=== PATIENT | female | born 2000 | race Caucasian/White ===

== ENCOUNTER 2020-06-18 15:38 | Outpatient (REF) | payer OTHER, MEDICAID, SELFPAY ==
[2020-06-18 18:20] LABS: Hematocrit 39.7 % (37-47); Hemoglobin 13.3 g/dl (12.0-16.0); Mean Corpuscular HGB Conc 33.5 g/dl (31.0-35.0); Mean Corpuscular Hemoglobin 31.3 pg (27.0-33.0); Mean Corpuscular Volume 93.4 fL (80-98); Mean Platelet Volume 10.3 fL (9.4-12.3); Platelet Count 275 X10*3/uL (160-400); Red Blood Count 4.25 X10*6/uL (4.20-5.50); Red Cell Distribution Width 12.2 % (11.0-16.0); White Blood Count 7.3 X10*3/uL (4.8-10.8)
[2020-06-18 18:31] LABS: Alanine Aminotransferase 12 U/L (0-31); Albumin Level 4.4 g/dL (3.5-5.0); Alkaline Phosphatase 44 U/L (39-117); Anion Gap 13 (12-20); Aspartate Amino Transferase 17 U/L (5-31); Bilirubin Direct 0.3 mg/dL (0.0-0.5); Bilirubin Total 0.7 mg/dL (0.0-1.0); Blood Urea Nitrogen 16 mg/dL (9-16); Calcium 9.6 mg/dL (8.4-10.2); Carbon Dioxide 27 mmol/L (22-29); Chloride 104 mmol/L (96-108); Estimated Glomerular Filt Rate > 60; Glucose Random 84 mg/dL (60-115); Sodium 140 mmol/L (135-145); Total Protein 7.4 g/dL (6.5-8.0)
[2020-06-18 18:40] LABS: HCG Quantitative < 2 mIU/mL
[2020-06-18 18:51] LABS: Thyroid Stimulating Hormone 1.03 uIU/mL (0.32-4.0)
[2020-06-20 06:11] LABS: CT PCR NOT DETECTED (Not Detect.); NG PCR NOT DETECTED (Not Detect.)
== END 2020-06-18 15:39 | disposition home or self-care (01) ==
LOC: HO.LAB 15:38
PROVIDERS: PCP Internal Medicine; Visit Provider Obstetrics & Gynecology
DX: N92.1 Excessive and frequent menstruation with irregular cycle (principal); R10.2 Pelvic and perineal pain; D64.9 Anemia, unspecified; N63.20 Unspecified lump in the left breast, unspecified quadrant; N63.10 Unspecified lump in the right breast, unspecified quadrant
CPT/HCPCS: 36415; 80048; 80076; 84443; 84702; 85027; 87491; 87591; 88142

== ENCOUNTER 2020-06-27 13:42 | Outpatient (REF) | payer OTHER, MEDICAID, SELFPAY ==
--- NOTE | ~2020-06-27 | US_ITS ---
EXAMINATION: US PELVIS COMPLETE CLINICAL INFORMATION: Pelvic and perineal pain COMPARISON: None TECHNIQUE: Transabdominal and transvaginal imaging of the pelvis is performed. FINDINGS: On transabdominal ultrasound, the uterus is anteverted measuring 7.8 cm in length, 3.2 cm in AP and 5.0 cm in transverse dimension. The uterus is homogeneous in echotexture. The endometrial thickness is 0.86 cm. Cervix measures 2.03 cm. There is trace fluid in the cervical canal. The right ovary measures 4.06 x 2.58 x 2.74 cm and volume 15.03 mL. The left ovary measures 4.59 x 2.67 x 4.57 cm and volume 29.33 mL. There is an anechoic cyst measuring 2.1 x 1.6 x 1.9 cm. There is a complex anechoic cyst measuring 1.7 x 1.7 x 1.64 cm. There is small amount of free fluid adjacent to the left ovary. US/US pelvic complete IMPRESSION: 1. Complex cyst left ovary measuring 2.1 cm. 2. Small amount of free fluid adjacent to the left ovary. 3. The uterus is unremarkable. There is trace fluid in the cervical canal.
--- NOTE | ~2020-06-27 | US_ITS ---
EXAMINATION: US PELVIS COMPLETE CLINICAL INFORMATION: Pelvic and perineal pain COMPARISON: None TECHNIQUE: Transabdominal and transvaginal imaging of the pelvis is performed. FINDINGS: On transabdominal ultrasound, the uterus is anteverted measuring 7.8 cm in length, 3.2 cm in AP and 5.0 cm in transverse dimension. The uterus is homogeneous in echotexture. The endometrial thickness is 0.86 cm. Cervix measures 2.03 cm. There is trace fluid in the cervical canal. The right ovary measures 4.06 x 2.58 x 2.74 cm and volume 15.03 mL. The left ovary measures 4.59 x 2.67 x 4.57 cm and volume 29.33 mL. There is an anechoic cyst measuring 2.1 x 1.6 x 1.9 cm. There is a complex anechoic cyst measuring 1.7 x 1.7 x 1.64 cm. There is small amount of free fluid adjacent to the left ovary. US/US transvaginal IMPRESSION: 1. Complex cyst left ovary measuring 2.1 cm. 2. Small amount of free fluid adjacent to the left ovary. 3. The uterus is unremarkable. There is trace fluid in the cervical canal.
== END 2020-06-27 13:43 | disposition home or self-care (01) ==
LOC: HO.US 13:42
PROVIDERS: PCP Internal Medicine; Visit Provider Obstetrics & Gynecology
DX: R10.2 Pelvic and perineal pain (principal); N92.1 Excessive and frequent menstruation with irregular cycle
CPT/HCPCS: 76830; 76856

== ENCOUNTER → 2020-07-04 11:15 | Outpatient (BNVA) | payer OTHER, MEDICAID, SELFPAY | PROVIDERS: PCP Internal Medicine; Visit Provider Obstetrics & Gynecology ==

== ENCOUNTER → 2020-07-12 09:21 | Outpatient (BNVA) | payer OTHER, MEDICAID, SELFPAY | PROVIDERS: PCP Internal Medicine; Visit Provider Surgery ==

== ENCOUNTER 2020-07-15 10:24 | Outpatient (REF) | payer OTHER, MEDICAID, SELFPAY ==
--- NOTE | ~2020-07-15 | US_ITS ---
EXAMINATION: US DIAGNOSTIC ULTRASOUND BREAST, LEFT CLINICAL INFORMATION: Bilateral lumps felt by patient. COMPARISON: Right breast ultrasound from 07/22/2016 through 02/25/2015 TECHNIQUE: Ultrasound of the breast is performed with real-time arroyo-scale imaging and color Doppler. FINDINGS: About the 12 o'clock position, 5 cm from nipple, there is a circumscribed 9 x 6 x 6 mm solid-appearing lesion without distal sound shadowing and with a small amount of distal sound enhancement. There is some internal vascularity present. No region of abnormal distal sound shadowing is seen. Patient has 2 similar lesions within the right breast, 1 of which had been previously biopsied at [facility] with pathology result of a fibroadenoma. Would recommend 6-month followup ultrasound at this time. Results are discussed with the patient at time of visit. US/US breast LT limited IMPRESSION: Left breast lesion 12 o'clock position, 5 cm from the nipple, likely representing fibroadenoma. Recommend 6-month followup ultrasound examination. ASSESSMENT: BI-RADS 3: Probably Benign. RECOMMENDATION: Diagnostic mammography in 6 months. This patient's information was entered into a reminder system with a target due date for their next mammogram.
--- NOTE | ~2020-07-15 | US_ITS ---
EXAMINATION: US DIAGNOSTIC ULTRASOUND BREAST, RIGHT CLINICAL INFORMATION: Right breast lumps. COMPARISON: Ultrasound examination from [facility] of 07/22/2016 and dating back to 02/25/2015. TECHNIQUE: Ultrasound of the breast is performed with real-time arroyo scale imaging and color Doppler. FINDINGS: At the 11 o'clock position 6 cm from nipple, there is again noted to be a well-circumscribed heterogeneous and hypoechoic lesion with internal vascularity. There is distal sound enhancement present. No suspicious distal sound shadowing. This is wider than it is tall. This corresponds to previously biopsied fibroadenoma. It has increased in size to approximately 2.8 x 2.5 x 1.2 cm in size compared to 1.8 x 1.8 x 0.8 cm in size on ultrasound study of November 14, 2015. There is also noted to be at the 4 o'clock position 9 cm from nipple a well-circumscribed hypoechoic lesion with increased distal through sound transmission without internal vascularity which is wider than it is tall measuring approximately 1.0 x 0.7 x 0.9 cm in size. This was not mentioned on previous studies. Recommend 6-month follow up study of the right breast to ensure stability. Results are discussed with the patient at time of visit. US/US breast RT limited IMPRESSION: Bilateral hypoechoic lesions one in each breast that was not noted previously and likely represent fibroadenomas for which 6-month follow up examination is recommended. Previously noted benign fibroadenoma within the right breast at the 11 o'clock position which has shown some increase in size since November 14, 2015. ASSESSMENT: BI-RADS 3: Probably Benign. RECOMMENDATION: Diagnostic mammography in 6 months. This patient's information was entered into a reminder system with a target due date for their next mammogram.
== END 2020-07-15 10:25 | disposition home or self-care (01) ==
LOC: HO.MAMMO 10:24
PROVIDERS: Visit Provider Surgery
DX: D24.2 Benign neoplasm of left breast (principal); D24.1 Benign neoplasm of right breast
CPT/HCPCS: 76642

== ENCOUNTER 2020-08-15 10:39 | Outpatient (REF) | payer OTHER, MEDICAID, SELFPAY | END 2020-08-15 10:40 | disposition home or self-care (01) | LOC: HO.LAB 10:39 | PROVIDERS: PCP Internal Medicine; Visit Provider Obstetrics & Gynecology | DX: R87.615 Unsatisfactory cytologic smear of cervix (principal) | CPT/HCPCS: 88142 ==

== ENCOUNTER → 2020-08-27 09:28 | Outpatient (BNVA) | payer OTHER, MEDICAID, SELFPAY | PROVIDERS: PCP Internal Medicine; Referring Provider Internal Medicine; Visit Provider Surgery ==

== ENCOUNTER 2020-09-18 06:13 | Day surgery (SDC) | payer OTHER, MEDICAID, SELFPAY ==
[2020-09-10 10:43] VITALS: BMI 17.6
--- NOTE | 2020-09-17 08:36 | HO.ANESPROP2 ---
HPI - Anesthesia Eval Consult details Narrative: 20yo F for Right Excision of Breast Mass PMFSH Active Problems Active Problems: All Active Problems (Updated 08/15/20 @ 10:59 by Chao Szymanski MD) Menometrorrhagia (Acute) Pelvic pain (Acute) Bilateral breast lump (Acute) Complex ovarian cyst (Acute) Encounter for repeat Pap smear due to previous insufficient cervical cells (Acute) Fibroadenoma of breast (Acute) Anemia (Acute) Past Medical History Medical History (Updated 08/15/20 @ 10:59 by Chao Szymanski MD) Anemia Fibroadenoma of breast Family History Family History Father Heart problem Paternal Grandmother Heart problem Mother Allergy Chronic asthma Surgical History Surgical History (Updated 09/10/20 @ 10:42 by Felicitas Maguire) No history of previous surgery Social History Social History (Updated 09/10/20 @ 10:43 by Felicitas Maguire) Alcohol intake: never Patient Tobacco Use Status: Never used Tobacco Gender identity: female Meds Allergies Allergy/AdvReac Type Severity Reaction Status Date / Time No Known Allergies Allergy Verified 09/10/20 10:42 Exam Exam Date and Time: September 17, 2020 0836 Height,Weight and Vital Signs: Height 5 ft 3 in Weight 45.359 kg Pertinent Lab Results Pertinent Lab Results: Laboratory Tests 06/18/20 06/18/20 16:32 16:32 WBC 7.3 Hgb 13.3 Hct 39.7 Plt Count 275 Sodium 140 Potassium 4.0 Chloride 104 Carbon Dioxide 27 BUN 16 Creatinine 0.75 Narrative Narrative: US breast RT limited 06/2020 IMPRESSION: Bilateral hypoechoic lesions one in each breast that was not noted previously and likely represent fibroadenomas for which 6-month follow up examination is recommended. Previously noted benign fibroadenoma within the right breast at the 11 o'clock position which has shown some increase in size since November 14, 2015. Assessment and Plan Assessment Anesthesia Assessment: Chart Reviewed
[2020-09-18] VITALS (8 sets, daily range): BP systolic 95–114; BP diastolic 45–73; PULSE 51–74; RESP 14–19; TEMP 36.6–37; O2SAT 95–100
[2020-09-18 06:31] LABS: UPreg QC Valid YES; Urine Pregnancy NEGATIVE (NEGATIVE)
[2020-09-18] MEDS: Lactated Ringers 1,000 ML 100 ML IVCONT (06:35)
--- NOTE | 2020-09-18 08:14 | W.PM.OPN ---
Operative Note Operative Note Date of Service: 09/18/20 Narrative: Preoperative diagnosis: Right breast mass Postoperative diagnosis: Same Procedure: Excision of right breast mass Surgeon: Aman Lisa MD Public Health Educator: Kaci Jarvis PA-C Anesthesia: Mac Indications for procedure: 20-year-old female patient with known bilateral fibroadenoma presenting with enlarging fibroadenoma in the 11 o'clock position of the right breast. She presents today for excision of this enlarging fibroadenoma. Operative findings: Fibroadenoma in the upper outer quadrant right breast Specimen: Right breast mass Estimated blood loss: 2 mL Complications: None Procedure details: Patient was brought to the OR placed in a supine position. After administering light sedation the patient's right breast was prepped with ChloraPrep and draped in sterile fashion. A surgical time-out was called the consent confirmed. Patient received preoperative antibiotics and Venodyne boots were in place. Local anesthesia consisting 1% lidocaine with epinephrine was then infiltrated around the lesion. Curvilinear incision was made around the nipple in the 11 o'clock position. This carried out through subcutaneous tissue. Superior inferior skin flaps were then created. Dissection with Metzenbaum scissors was then used to dissect down to the palpable mass. This was then grasped with an Allis clamp and brought up through the incision. Electrocautery was then used to dissect around the lesion. Lesion was completely excised and sent to pathology for further examination. Wounds were irrigated with saline solution. Hemostasis was assured using electrocautery. Breast tissue was reapproximated using interrupted 3-0 Polysorb sutures in a radial fashion. Dermis was then reapproximated using interrupted 3-0 Polysorb sutures. Skin was then closed using a running subcuticular 4-0 Polysorb suture. Steri-Strips 2 x 2 gauze and Tegaderm were then applied. The patient tolerated the procedure well. Sponge, instrument, and needle counts were reported as correct. Patient was transferred to PACU in stable condition.
--- NOTE | 2020-09-18 08:19 | MHC.SHP ---
Pre-Procedural Eval Section A Date of Service: 09/18/20 The patient is an INPATIENT: Yes Changes since office visit: Yes Patient answered all questions; No Cold of Flu in the past 2 weeks, No New Medical Problems and No Changes in Medication The History & Physical has been completed within 30 days and I have reviewed it.: Yes Section B Chief Complaint: Unspecified lump in the right breast Allergies: Allergies Allergy/AdvReac Type Severity Reaction Status Date / Time No Known Allergies Allergy Verified 09/10/20 10:42 Plan Diagnosis/Plan: Unchanged I have reviewed the history and physical and performed a pertinent physical examination on my patient. No changes have occurred unless specified.
== END 2020-09-18 09:24 | disposition home or self-care (01) ==
PROVIDERS: Nurse Practitioner; PCP Internal Medicine; Visit Provider Surgery
PROC: (CPT 19120; principal; 2020-09-18 07:30)
DX: D24.1 Benign neoplasm of right breast (principal); D64.9 Anemia, unspecified
CPT/HCPCS: 19120; 81025; 88307; J0690; J1100; J2250; J2405; J3010

== ENCOUNTER → 2020-09-27 13:19 | Outpatient (BNVA) | payer OTHER, MEDICAID, SELFPAY | PROVIDERS: PCP Internal Medicine; Visit Provider Surgery ==

== ENCOUNTER 2021-04-24 11:24 | Outpatient (REF) | payer OTHER, MEDICAID, SELFPAY ==
--- NOTE | ~2021-04-24 | US_ITS ---
EXAMINATION: US PELVIS COMPLETE US PELVIS TRANSVAGINAL CLINICAL INFORMATION: Follow-up ovarian cyst COMPARISON: Previous pelvic ultrasound June 2020 TECHNIQUE: Transabdominal and transvaginal pelvic ultrasound was performed. Transvaginal exam was performed for better visualization of the uterus and ovaries. FINDINGS: The uterus is anteverted and measures 7.2 x 3.8 x 4.8 cm in dimension. No focal uterine lesion is seen. Endometrial thickness is normal measuring 0.6 cm. The cervix is normal. The ovaries are upper normal in size. The right ovary measures 4.2 x 2.7 x 2.8 cm, volume 17 mL. The left ovary measures 4.8 x 2.2 x 2.8 cm, volume 15 mL. The previously identified slightly complex left ovarian cyst seen June 2020 is no longer seen. There is a polycystic appearance of the ovaries. There is a small amount of fluid in the pelvis. US/US transvaginal IMPRESSION: Resolved complex left ovarian cyst from June 2020 exam. The ovaries are upper normal in size with polycystic appearance.
--- NOTE | ~2021-04-24 | US_ITS ---
EXAMINATION: US PELVIS COMPLETE US PELVIS TRANSVAGINAL CLINICAL INFORMATION: Follow-up ovarian cyst COMPARISON: Previous pelvic ultrasound June 2020 TECHNIQUE: Transabdominal and transvaginal pelvic ultrasound was performed. Transvaginal exam was performed for better visualization of the uterus and ovaries. FINDINGS: The uterus is anteverted and measures 7.2 x 3.8 x 4.8 cm in dimension. No focal uterine lesion is seen. Endometrial thickness is normal measuring 0.6 cm. The cervix is normal. The ovaries are upper normal in size. The right ovary measures 4.2 x 2.7 x 2.8 cm, volume 17 mL. The left ovary measures 4.8 x 2.2 x 2.8 cm, volume 15 mL. The previously identified slightly complex left ovarian cyst seen June 2020 is no longer seen. There is a polycystic appearance of the ovaries. There is a small amount of fluid in the pelvis. US/US pelvic complete IMPRESSION: Resolved complex left ovarian cyst from June 2020 exam. The ovaries are upper normal in size with polycystic appearance.
== END 2021-04-24 11:25 | disposition home or self-care (01) ==
LOC: HO.US 11:24
PROVIDERS: Visit Provider Obstetrics & Gynecology
DX: N83.299 Other ovarian cyst, unspecified side (principal)
CPT/HCPCS: 76830; 76856

== ENCOUNTER → 2021-04-30 13:46 | Outpatient (BNVA) | payer OTHER, MEDICAID, SELFPAY | PROVIDERS: Visit Provider Obstetrics & Gynecology ==

== ENCOUNTER 2021-06-27 08:20 | Emergency (ER) | payer OTHER, MEDICAID, SELFPAY ==
--- NOTE | ~2021-06-27 | CT_ITS ---
EXAMINATION: CT ABDOMEN AND PELVIS WITHOUT CONTRAST CLINICAL INFORMATION: Left flank pain. COMPARISON: None TECHNIQUE: Multidetector volumetric imaging was performed from the superior aspect of the liver through the pubic symphysis. Sagittal and coronal reformatted images were obtained on the technologist's workstation. This CT examination was performed using dose optimization techniques as appropriate, variously including the following: *Automated exposure control *Adjustment of mA and/or kV according to patient size (this includes techniques or standardized protocols for targeted exams where dose is matched to indication/reason for exam; i.e. extremities or head) *Use of iterative reconstruction technique DLP: 270 mGy-cm FINDINGS: LUNG BASES: The visualized lung bases are unremarkable. LIVER, GALLBLADDER, AND BILIARY TREE: The liver is normal in size, shape, and attenuation. No focal hepatic lesion or biliary ductal dilatation is present. The gallbladder is unremarkable with no evidence of radiopaque gallstones, gallbladder wall thickening, or obvious pericholecystic inflammatory changes. PANCREAS: Suboptimally evaluated on this patient with minimal body fat as well as lack of intravenous contrast, grossly unremarkable. SPLEEN: Unremarkable. ADRENAL GLANDS: Unremarkable. KIDNEYS AND URETERS: Subtle hyper densities are noted along the distribution of the renal pyramids/medulla within the right kidney (best visualized on the coronal images -42, 45:9). (Extensive subtle hypodensities are also noted within the left kidney. The findings are consistent with medullary nephrocalcinosis. Specific note is made of a superimposed tiny punctate 2 mm hyperdensity within the middle calyx of the left kidney (39:9), may represent tiny nonobstructing calculus. Mild asymmetric fullness of the left renal pelvicalyceal system is noted. Mild dilatation of the proximal to mid part of the left ureter is noted. There is a 2 to 3 mm radiodensity seen within the left mid to lower hemipelvis (511:6), may represent phlebolith versus distal left ureteric calculus. BLADDER: Suboptimally distended, shows apparent diffuse mural wall thickening, likely changes secondary to physiologic suboptimal distention. Differential include superimposed infection as well. GASTROINTESTINAL TRACT: Significant fecal residual is noted throughout the entire large bowel. The small bowel loops are decompressed. The stomach is decompressed. Appendicoliths are noted without any CT features of superimposed acute appendicitis. ABDOMINAL WALL: No significant hernia is appreciated. LYMPH NODES: Normal. VASCULAR: Suboptimally visualized due to lack of body fat, grossly unremarkable. PELVIC VISCERA: No evidence of any free fluid and/or free air. Phleboliths are seen within the lower pelvis bilaterally (right greater than left). OSSEOUS STRUCTURES: Unremarkable. CT/CT abdomen pelvis wo con IMPRESSION: 1. Technically limited study due to lack of body fat and lack of oral and intravenous contrast. 2. Subtle hyper densities are noted within both kidneys (right greater than left) along the pyramids, consistent with medullary nephrocalcinosis. Superimposed tiny punctate 2 mm hyperdensity within the medial calyx of the left kidney may represent tiny nonobstructing calculus. Mild asymmetric fullness of the left renal pelvicalyceal system and mild dilatation of the proximal to mid part of the left ureter are also noted. There is a 2 to 3 mm radiodensity seen within the left mid to lower hemipelvis, may represent phlebolith versus distal left ureteric calculus. 3. Appendicolith without any CT features of superimposed acute appendicitis. Fleischner guidelines were followed.
[2021-06-27 08:23] VITALS: BP 107/72; PULSE 76; RESP 17; TEMP 36.6; O2SAT 100; BMI 17.6
[2021-06-27 08:34] LABS: MANUAL DIFF FLAG NO
[2021-06-27 08:37] LABS: Basophils Percent Auto 0.4 % (0-2); Eosinophils Percent Auto 0.1 % (0-4); Hematocrit 36.1 % (37.0-47.0); Hemoglobin 12.5 g/dl (12.0-16.0); Imm Gran Abs Auto 0.02 X10*3/uL (0.00-0.03); Imm Gran Pct Auto 0.2 % (0.0-0.4); Lymphocytes Absolute Auto 0.9 X10*3/uL (1.2-4.9); Mean Corpuscular HGB Conc 34.6 g/dl (31.0-35.0); Mean Corpuscular Hemoglobin 31.3 pg (27.0-33.0); Mean Corpuscular Volume 90.5 fL (80.0-98.0); Monocytes Absolute Auto 0.3 X10*3/uL (0.1-1.2); Monocytes Percent Auto 2.9 % (2-11); Neutrophils Percent Auto 86.4 % (45-73); Platelet Count 211 X10*3/uL (160-400); Red Blood Count 3.99 X10*6/uL (4.20-5.50); Red Cell Distribution Width 11.9 % (11.0-16.0); White Blood Count 9.2 X10*3/uL (4.8-10.8)
--- NOTE | 2021-06-27 08:51 | ED.ABDPAIN ---
HPI - Abdominal Pain General Chief Complaint: Abdominal Pain Stated Complaint: Abd pain Time Seen by Provider: 06/27/21 08:50 History of Present Illness HPI narrative: Patient is a 21 year old female presented today with abdominal pain mainly over the left flank left lower quadrant very sudden onset started approximately 05:00. No cough no congestion or upper respiratory symptoms no diaphoresis. Pain is very sharp. Associated with some mild nausea. No vomiting. No change in bowel movement. No vaginal discharge. Patient home. Does not think she is . Her menstruation has been normal. Has no abdominal surgery the past Related Data Previous Rx's Medication Instructions Recorded ibuprofen 400 mg tablet 400 mg PO Q6H PRN #20 tab 06/27/21 ondansetron 4 mg disintegrating 4 mg PO TID PRN 5 Days #10 tab 06/27/21 tablet oxycodone 5 mg tablet 5 mg PO Q8H PRN #7 tab 06/27/21 tamsulosin 0.4 mg capsule (Flomax) 0.4 mg PO DAILY #7 cap 06/27/21 Allergies Allergy/AdvReac Type Severity Reaction Status Date / Time No Known Allergies Allergy Verified 03/25/21 10:15 Review of Systems Review of Systems No coughing or congestion no upper respiratory symptoms No diaphoresis All system reviewed otherwise negative Yes all other systems are reviewed and are negative PMFSH Past Medical History Medical History Anemia Fibroadenoma of breast Surgical History History of cystostomy Family History Family History Father Heart problem Paternal Grandmother Heart problem Mother Allergy Chronic asthma Social History Social History Housing: House Alcohol intake: never Patient Tobacco Use Status: Never used Tobacco e-Cigarette/Vaping Use: Currently Using Advance Directives: No Patient : No service: No Current occupational status: unemployed Gender identity: Female Cognitive needs: No Hearing needs: No Vision needs: No Physical Exam ED Vital Signs: Vital Signs - 24 hr 06/27/21 08:23 06/27/21 11:53 Temperature 97.9 F Pulse Rate 76 70 Respiratory Rate 17 16 Blood Pressure 107/72 99/62 Pulse Oximetry 100 96 BMI result Body Mass Index 17.6 Appearance: Alert. Oriented X3. No acute distress. Eyes: Pupils equal, round and reactive to light. ENT: Pharynx normal. Neck: Normal inspection. Neck supple. No lymph nodes noted. No crepitus CVS: Normal heart rate and rhythm. Pulses normal. Normal S1 and S2 Respiratory: No respiratory distress. Breath sounds normal. No Wheezing. No rales Abdomen: Soft and nontender. No rigidity. No distention. good BS x4 Skin: Skin warm and dry. Normal skin color. Normal skin turgor. Extremities: No lower extremity edema. Neurovascular intact to all extremities. No Lacerations. No Rash Neuro: Oriented X 3. No motor deficit. No sensory deficit. Moving all extermities. No slurred speech MDM - Abdominal Pain MDM Narrative Medical decision making narrative: CT of the abdomen showed possible kidney stones causing patient's pain on the left side. There is no appendicitis. No bowel obstructions abscess. Urine was negative for infection creatinine was normal pain is now controlled. Will give patient pain medication have patient follow-up with urology on an outpatient basis. She is in stable condition. Will discharge home. Medical Records Attestation: I reviewed the patient's medical records. Lab Data Attestation: I reviewed the patient's lab results. Result diagrams: 06/27/21 08:30 06/27/21 08:30 Labs: Lab Results 06/27/21 06/27/21 06/27/21 Range/Units 08:30 08:30 08:47 WBC 9.2 (4.8-10.8) X10*3/uL RBC 3.99 L (4.20-5.50) X10*6/uL Hgb 12.5 (12.0-16.0) g/dl Hct 36.1 L (37.0-47.0) % MCV 90.5 (80.0-98.0) fL MCH 31.3 (27.0-33.0) pg MCHC 34.6 (31.0-35.0) g/dl RDW 11.9 (11.0-16.0) % Plt Count 211 (160-400) X10*3/uL MPV 10.0 (9.4-12.3) fL Immature Gran % (Auto) 0.2 (0.0-0.4) % Neut % (Auto) 86.4 H (45-73) % Lymph % (Auto) 10.0 L (20-40) % Ferry % (Auto) 2.9 (2-11) % Eos % (Auto) 0.1 (0-4) % Baso % (Auto) 0.4 (0-2) % Lymph # (Auto) 0.9 L (1.2-4.9) X10*3/uL Ferry # (Auto) 0.3 (0.1-1.2) X10*3/uL Eos # (Auto) 0.0 (0.0-0.4) X10*3/uL Baso # (Auto) 0.0 (0.0-0.2) X10*3/uL Abs Immat Gran (auto) 0.02 (0.00-0.03) X10*3/uL Absolute Neuts (auto) 8.0 (2.0-8.3) x10*3/uL Absolute Nucleated RBC 0.000 (0.0-0.012) X10*3/uL Nucleated RBC % (auto) 0.0 (0.0-0.2) /100WBC Sodium 138 (135-145) mmol/L Potassium 3.7 (3.3-5.1) mmol/L Chloride 107 (96-108) mmol/L Carbon Dioxide 21 L (22-29) mmol/L Anion Gap 14 (12-20) BUN 18 H (9-16) mg/dL Creatinine 0.83 (0.5-1.4) mg/dL Estim Creat Clear Calc 75.5 Estimated GFR > 60 Random Glucose 102 (60-115) mg/dL Calcium 9.6 (8.4-10.2) mg/dL Total Bilirubin 0.5 (0.0-1.0) mg/dL AST 18 (5-31) U/L ALT 11 (0-31) U/L Alkaline Phosphatase 40 (39-117) U/L Total Protein 7.4 (6.5-8.0) g/dL Albumin 4.3 (3.5-5.0) g/dL Lipase 20 (8-78) U/L Urine Color YELLOW Urine Appearance HAZY Urine pH 7.0 (5.0-8.0) Ur Specific [place] 1.025 (1.005-1.025) Urine Protein TRACE (NEG-TRACE) MG/DL Urine Glucose (UA) NEG (NEG) MG/DL Urine Ketones 5 (NEG) MG/DL Urine Blood NEG (NEG) Urine Nitrite NEG (NEG) Ur Leukocyte Esterase NEG (NEG) Urine Test (NEGATIVE) 06/27/21 Range/Units 08:47 WBC (4.8-10.8) X10*3/uL RBC (4.20-5.50) X10*6/uL Hgb (12.0-16.0) g/dl Hct (37.0-47.0) % MCV (80.0-98.0) fL MCH (27.0-33.0) pg MCHC (31.0-35.0) g/dl RDW (11.0-16.0) % Plt Count (160-400) X10*3/uL MPV (9.4-12.3) fL Immature Gran % (Auto) (0.0-0.4) % Neut % (Auto) (45-73) % Lymph % (Auto) (20-40) % Ferry % (Auto) (2-11) % Eos % (Auto) (0-4) % Baso % (Auto) (0-2) % Lymph # (Auto) (1.2-4.9) X10*3/uL Ferry # (Auto) (0.1-1.2) X10*3/uL Eos # (Auto) (0.0-0.4) X10*3/uL Baso # (Auto) (0.0-0.2) X10*3/uL Abs Immat Gran (auto) (0.00-0.03) X10*3/uL Absolute Neuts (auto) (2.0-8.3) x10*3/uL Absolute Nucleated RBC (0.0-0.012) X10*3/uL Nucleated RBC % (auto) (0.0-0.2) /100WBC Sodium (135-145) mmol/L Potassium (3.3-5.1) mmol/L Chloride (96-108) mmol/L Carbon Dioxide (22-29) mmol/L Anion Gap (12-20) BUN (9-16) mg/dL Creatinine (0.5-1.4) mg/dL Estim Creat Clear Calc Estimated GFR Random Glucose (60-115) mg/dL Calcium (8.4-10.2) mg/dL Total Bilirubin (0.0-1.0) mg/dL AST (5-31) U/L ALT (0-31) U/L Alkaline Phosphatase (39-117) U/L Total Protein (6.5-8.0) g/dL Albumin (3.5-5.0) g/dL Lipase (8-78) U/L Urine Color Urine Appearance Urine pH (5.0-8.0) Ur Specific [place] (1.005-1.025) Urine Protein (NEG-TRACE) MG/DL Urine Glucose (UA) (NEG) MG/DL Urine Ketones (NEG) MG/DL Urine Blood (NEG) Urine Nitrite (NEG) Ur Leukocyte Esterase (NEG) Urine Test NEGATIVE (NEGATIVE) Discharge Plan Discharge Clinical Impression: Renal colic Patient Disposition: Home, Self-Care Instructions: Renal Colic (ED) Prescriptions: New tamsulosin [Flomax] 0.4 mg capsule 0.4 mg PO DAILY Qty: 7 0RF ibuprofen 400 mg tablet 400 mg PO Q6H PRN (Reason: pain) Qty: 20 0RF ondansetron 4 mg tablet,disintegrating 4 mg PO TID PRN (Reason: nausea and vomiting) 5 Days Qty: 10 0RF oxycodone 5 mg tablet 5 mg PO Q8H PRN (Reason: pain) Qty: 7 0RF Referrals: Shun Iglesias MD [Physician] -
[2021-06-27 08:53] LABS: Appearance Urine HAZY; Color Urine YELLOW; Glucose Urine UA NEG (NEG); Leukocyte Esterase Urine NEG (NEG); Nitrite Urine NEG (NEG); Specific Gravity - Urine 1.025 (1.005-1.025); Urine Blood NEG (NEG); Urine Ketones 5 MG/DL (NEG); Urine Protein TRACE MG/DL (NEG-TRACE)
[2021-06-27 08:55] LABS: UPreg QC Valid YES; Urine Pregnancy NEGATIVE (NEGATIVE)
[2021-06-27 09:02] LABS: Alanine Aminotransferase 11 U/L (0-31); Albumin Level 4.3 g/dL (3.5-5.0); Alkaline Phosphatase 40 U/L (39-117); Anion Gap 14 (12-20); Aspartate Amino Transferase 18 U/L (5-31); Bilirubin Total 0.5 mg/dL (0.0-1.0); Blood Urea Nitrogen 18 mg/dL (9-16); Calcium 9.6 mg/dL (8.4-10.2); Carbon Dioxide 21 mmol/L (22-29); Chloride 107 mmol/L (96-108); Creatinine Clr Calc Pharmacy 75.5; Estimated Glomerular Filt Rate > 60; Glucose Random 102 mg/dL (60-115); Lipase 20 U/L (8-78); Potassium 3.7 mmol/L (3.3-5.1); Sodium 138 mmol/L (135-145); Total Protein 7.4 g/dL (6.5-8.0)
--- NOTE | 2021-06-27 10:32 | PC.NURSE ---
IV placed in left AC #20 without problem. Resting quietly and in no apparent distress
[2021-06-27 11:53] VITALS: BP 99/62; PULSE 70; RESP 16; O2SAT 96
== END 2021-06-27 12:38 | disposition home or self-care (01) ==
PROVIDERS: Emergency Provider Emergency Medicine Emergency Medical Services; PCP Internal Medicine
DX: N23 Unspecified renal colic (principal)
CPT/HCPCS: 36415; 74176; 80053; 81003; 81025; 83690; 85025; 99283; 99284

== ENCOUNTER → 2021-09-12 09:41 | Outpatient (BNVA) | payer OTHER, MEDICAID, SELFPAY | PROVIDERS: PCP Internal Medicine | DX: N20.0 Calculus of kidney (principal); R63.0 Anorexia | CPT/HCPCS: 97802; 99202 ==